=== PATIENT | female | born 1985 | race Caucasian/White ===

== ENCOUNTER → 2016-08-23 | Outpatient (CLI) | payer OTHER ==
--- NOTE | 2016-08-23 13:57 | US ---
EXAMINATION TYPE: US OB <= 14 wk fetus DATE OF EXAM: 08/23/2016 12:37 PM COMPARISON: NONE CLINICAL HISTORY: 30-year-old female Z34.80 encounter for supervision of normal . No complai nts Date of LMP: 06/02/2016 EXAM PERFORMED: Transabdominal (TA) FINDINGS: TECHNOLOGIST NOTES: some exam limitations due to patient size EXAM MEASUREMENTS: GESTATIONAL AGE / DATING Physician Established: not established yet Dates by LMP: (11 weeks/5 days) EDC: 03/09/2017 Dates by First Scan: no previous here Dates by Current Scan for: (12 weeks/1 days +/- 1W1D) EDC: 03/06/2017 MATERNAL ANATOMY Uterus: 15.5 x 9.6 x 8.2cm Right Ovary: 4.2 x 2.7 x 3.5cm Left Ovary: 4.9 x 3.2 x 3.2cm Both ovaries appear prominent in size but are not seen in great detail. No evident adnexal abnormality or cul-de-sac free fluid. GESTATION / SURVEY CRL: 5.5cm (12 weeks/1 days) MSD: Within normal limits Yolk Sac (normal less than 6mm): not seen Heart Rate: 178 bpm Rhythm: Normal IUP: single IMPRESSION: 1. Single live intrauterine with estimated gestational age of 11 weeks 5 days by LMP. Curre nt ultrasound biometry is concordant (12 weeks 1 day). 2. heart rate at the upper limits of normal. A short interval follow-up in 2 - 3 weeks can be c onsidered as indicated. 3. Ovaries appear prominent in size but are not seen in great detail.
== END | disposition home or self-care (01) ==
LOC: RADUSWWP 12:11
PROVIDERS: ATTEND Obstetrics & Gynecology
DX: Z34.80 Encounter for supervision of other normal pregnancy, unspecified trimester (principal); Z3A.11 11 weeks gestation of pregnancy
CPT/HCPCS: 76801

== ENCOUNTER → 2016-11-11 | Outpatient (CLI) | payer OTHER ==
--- NOTE | 2016-10-27 16:02 | US ---
EXAMINATION TYPE: US OB anatomy transabd DATE OF EXAM: 10/27/2016 3:39 PM COMPARISON: US HISTORY: Z36 Unspecified screening Anatomy scan, 3, para 2 TECHNIQUE: Transabdominal (TA) EXAM MEASUREMENTS: GESTATIONAL AGE / DATING Physician Established: (21 weeks/0 days) EDC: 03/09/2017 Dates by LMP: (21 weeks/0 days) EDC: 03/09/2017 Dates by First Scan: (21 weeks/3 days) EDC: 03/06/2017 Dates by Current Scan for: (22 weeks/0 days) EDC: 03/02/2017 SURVEY IUP: Single PLACENTA: Anterior PREVIA: No previa MYESHA: 14.5 cm Normal CERVICAL LENGTH (transabdominal: norm > 3.0cm): 3.3 cm BIOMETRY PRESENTATION: Breech LIE: Transverse lie with head maternal right BPD: 5.2 cm 21 weeks / 6 days HC: 19.8 cm 22 weeks / 0 days AC: 16.9 cm 22 weeks / 0 days FL: 3.7 cm 21 weeks / 6 days ESTIMATED WEIGHT IN GRAMS: 456 grams ESTIMATED WEIGHT IN LBS/OZS: 1 lbs. 0 oz. WEIGHT PERCENTAGE BASED ON ESTABLISHED DATE: 87 % HC/AC: 1.17 Normal FL/AC: 22% Normal HEART RATE: 160 bpm RHYTHM: Normal ANATOMY SEEN (within normal limits): * Lateral Vent (< 1 cm) 0.7 cm * Cisterna Magna (< 1.1 cm) 0.5 cm * Nuchal Fold (< 0.6 cm) 0.3 cm * Cerebellum (varies with age) 2.1 cm Choroid Plexus (bilateral) Midline Falx Cavus Septi Pellucidi Outflow tracts: LVOT Stomach Situs Diaphragm Kidneys (bilateral) Bladder Cord Insert Three Vessel Cord Longitudinal Spine Transverse Spine Arms (bilateral) Legs (bilateral) ANATOMY NOT SEEN: Due to position and maternal body habitus Four Chamber Heart Outflow tracts: RVOT Nose / Lips MATERNAL WALL MEASUREMENT: 4.5 cm from skin to anterior uterine wall (if exam limited due to body martinez bitus). Viable single IUP measuring 22 weeks 0 days with a heart rate of 160bpm and an estimated delivery charlee e of 03/02/2017, technically difficult and suboptimal study due to maternal body habitus Patient returning for OB callback on 11/11/16 at 3:40pm for anatomy not seen on today's exam. IMPRESSION: Single intrauterine gestation estimated at 22 weeks 0 days gestation. Cardiac activity measures 160 b pm. 2. Calculated EDC based on current measurements is 03/02/2017. 3. small parts are not completely evaluated, the patient will be recalled for additional evalua tion.
--- NOTE | 2016-11-11 15:58 | US ---
EXAMINATION TYPE: US OB Call Back DATE OF EXAM: 11/11/2016 3:43 PM COMPARISON: NONE CLINICAL HISTORY: Assess 4ch heart, outflow tracts and nose lips GESTATIONAL AGE / DATING Dates by Initial Survey Scan: (23 weeks/1 days) EDC: 03/09/2017 HEART RATE: 154 bpm RHYTHM: Normal ANATOMY SEEN (second anatomic survey look): Four Chamber Heart: Outflow tracts:? LVOT/RVOT Nose / Lips: MATERNAL WALL MEASUREMENT: 4.5 cm from skin to anterior uterine wall (if exam limited due to body martinez bitus). first 6 images done in [facility] rm 2 and could not penetrate to image clearly, moved patient to [facility] rm 1 to obtain needed images of heart and nose/lips IMPRESSION: Satisfactory supplement to anatomy scan.
== END | disposition home or self-care (01) ==
LOC: RADUSWWP 10-27 14:50
PROVIDERS: ATTEND Obstetrics & Gynecology
DX: Z36 Encounter for antenatal screening of mother (principal); Z3A.22 22 weeks gestation of pregnancy
CPT/HCPCS: 76811

== ENCOUNTER → 2017-02-21 | Outpatient (CLI) | payer OTHER ==
--- NOTE | 2017-02-22 07:48 | US ---
EXAMINATION TYPE: US OB >= 14 wk fetus DATE OF EXAM: 02/21/2017 COMPARISON: US CLINICAL HISTORY: Z36 Encounter for Screening of Mother LGA TECHNIQUE: Transabdominal (TA) GESTATIONAL AGE / DATING Physician Established: (37 weeks/5 days) EDC: 03/09/2017 Dates by LMP: (37 weeks/5 days) EDC: 03/09/2017 Dates by First Scan: (38 weeks/1 days) EDC: 03/06/2017 Dates by Current Scan: (39 weeks/2 days) EDC: 02/26/2017 SURVEY IUP: Single PLACENTA: Anterior PREVIA: No Previa MYESHA: 11.4 cm Normal CERVICAL LENGTH (transabdominal: norm > 3.0cm): 3.3 cm BIOMETRY PRESENTATION: Vertex BPD: 9.4 cm 38 weeks / 2 days HC: 35.2 cm 41 weeks / 1 days AC: 34.2 cm 38 weeks / 1 days FL: 7.7 cm 39 weeks / 3 days ESTIMATED WEIGHT IN GRAMS: 3584 grams ESTIMATED WEIGHT IN LBS/OZS: 7 lbs. 14 oz. WEIGHT PERCENTAGE BASED ON ESTABLISHED DATES: 84% HC/AC: 1.03 Normal FL/AC: 23% Normal HEART RATE: 130 bpm RHYTHM: Normal Viable single IUP measuring 39 weeks 2 days with a heart rate of 130bpm and an estimated delivery charlee e of 02/26/2017. IMPRESSION: Single viable intrauterine as discussed above.
== END | disposition home or self-care (01) ==
LOC: RADUSWWP 15:40
PROVIDERS: ATTEND Obstetrics & Gynecology
DX: Z36 Encounter for antenatal screening of mother (principal); Z3A.39 39 weeks gestation of pregnancy
CPT/HCPCS: 76805

== ENCOUNTER → 2020-10-15 | Outpatient (CLI) | payer OTHER ==
--- NOTE | 2020-10-16 13:06 | US ---
DATE OF EXAM: 10/15/2020 COMPARISON: NONE CLINICAL HISTORY: R59.9 Enlarged lymph nodes, M54.2 Cervicalgia. pain in right neck for 1.5yrs, no pa lpable. Soft tissue scan of right neck produced lymph nodes that are wnl, largest node = 1.4 x 1.0 x 0.4cm IMPRESSION: 1. Lymph node right neck
== END | disposition home or self-care (01) ==
LOC: RADUSWWP 16:45
PROVIDERS: ATTEND Psychiatry & Neurology Neurology
DX: R59.0 Localized enlarged lymph nodes (principal)
CPT/HCPCS: 76536

== ENCOUNTER 2022-05-13 08:07 | Emergency (ER) | payer OTHER ==
[2022-05-13 08:15] VITALS: RESP 18
[2022-05-13] MEDS ORDERED: SODIUM CHLORIDE 0.9% 500 ML 500 ML IV STA (08:18)
--- NOTE | 2022-05-13 08:40 | ED ---
Arrhythmia/Palpitations HPI - General Chief Complaint: Arrhythmia/Palpitations Stated Complaint: Hypotensive Time Seen by Provider: 05/13/22 08:10 Source: patient Mode of arrival: EMS Limitations: no limitations - History of Present Illness Initial Comments: 36-year-old female with past medical history of SVT, cardiomyopathy who presents to the emergency department with palpitations. States that she awoke this morning around 3:30. Around 5:30 she began having symptoms of lightheadedness and palpitations. Called EMS who found that the patient was in SVT. Blood pressure was markedly low, 60/30. EMS did attempt vagal maneuvers however were unsuccessful. IV was established and the patient was given 6 mg of adenosine and was converted. Reports he one previous episode of SVT which required adenosine. She also developed cardiomyopathy with her youngest child who is now 5 years old. She follows yearly with cardiology. Previously was with Dr. Vaughan out of [place] - now sees Dr. Perez. Reports to having an echo approximately 8 months ago. Her ejection fraction has been improving however has not completely reached baseline. She denies any recent medication changes. Did take her Coreg this morning. Denies any recent illnesses. No fevers or chills. She did have associated chest pain and shortness of breath with the episode which is now resolved. No abdominal pain. No black or bloody stools. Denies concern for . No other alleviating, precipitating or modifying factors - Related Data Home Medications Medication Instructions Recorded Confirmed Cetirizine HCl [Zyrtec] 10 mg PO DAILY 05/13/22 05/13/22 Gabapentin 600 mg PO QID 05/13/22 05/13/22 HYDROcodone/APAP 10-325MG [[place] 1 tab PO QID PRN 05/13/22 05/13/22 10-325] Losartan/Hydrochlorothiazide 1 tab PO DAILY 05/13/22 05/13/22 [Hyzaar 100-25 Tablet] Medroxyprogesterone Acetate 150 mg IM Q84D 05/13/22 05/13/22 [Depo-Provera] Rosuvastatin Calcium 5 mg PO DAILY 05/13/22 05/13/22 buPROPion XL [Wellbutrin XL] 300 mg PO DAILY 05/13/22 05/13/22 carvediloL [Coreg] 25 mg PO BID 05/13/22 05/13/22 methocarbamoL [Robaxin-750] 750 mg PO QID 05/13/22 05/13/22 Allergies Allergy/AdvReac Type Severity Reaction Status Date / Time codeine AdvReac Nausea & Verified 05/13/22 10:22 Vomiting & Rash-from Tylenol #3 varenicline [From Chantix] AdvReac Nightmares Verified 05/13/22 10:22 Review of Systems ROS Statement: Those systems with pertinent positive or pertinent negative responses have been documented in the HPI. ROS Other: All systems not noted in ROS Statement are negative. Past Medical History Past Medical History: No Reported History Additional Past Medical History / Comment(s): Cardiomyopathy, SVT, History of Any Multi-Drug Resistant Organisms: None Reported Past Surgical History: Adenoidectomy, Appendectomy, Cholecystectomy, Tonsillectomy Past Psychological History: No Psychological Hx Reported Past Alcohol Use History: None Reported Past Drug Use History: None Reported General Exam Limitations: no limitations General appearance: alert, in no apparent distress Head exam: Present: atraumatic, normocephalic, normal inspection Eye exam: Present: normal appearance, PERRL, EOMI. Absent: scleral icterus, conjunctival injection, periorbital swelling ENT exam: Present: normal exam, mucous membranes moist Neck exam: Present: normal inspection. Absent: tenderness, meningismus, lymphadenopathy Respiratory exam: Present: normal lung sounds bilaterally. Absent: respiratory distress, wheezes, rales, rhonchi, stridor Cardiovascular Exam: Present: normal rhythm, tachycardia, normal heart sounds. Absent: systolic murmur, diastolic murmur, rubs, gallop, clicks GI/Abdominal exam: Present: soft, normal bowel sounds. Absent: distended, tenderness, guarding, rebound, rigid Extremities exam: Present: normal inspection, full ROM, normal capillary refill. Absent: tenderness, pedal edema, joint swelling, calf tenderness Back exam: Present: normal inspection Neurological exam: Present: alert, oriented X3, CN II-XII intact Psychiatric exam: Present: normal affect, normal mood Skin exam: Present: warm, dry, intact, normal color. Absent: rash Course Vital Signs 05/13/22 05/13/22 05/13/22 08:08 08:15 08:58 Temperature 99.0 F Pulse Rate 105 H 114 H Pulse Rate [ 106 H Residential Assistant ] Respiratory 18 18 Rate Blood Pressure 144/90 120/89 O2 Sat by Pulse 99 98 Oximetry 05/13/22 05/13/22 10:15 11:17 Temperature 98.8 F Pulse Rate 95 92 Pulse Rate [ Residential Assistant ] Respiratory 18 18 Rate Blood Pressure 108/69 117/80 O2 Sat by Pulse 99 97 Oximetry EKG Findings - EKG Comments: EKG Findings:: EKG demonstrates a sinus rhythm with a rate of 99. AK interval 137. QRS 11. QTC of 394. No acute ST segment elevations or depressions. I interpreted the EKG myself Medical Decision Making - Medical Decision Making Upon arrival patient is placed in room 2. Thorough history and physical exam is performed. patient placed on continuous pulse ox and cardiac monitoring. Patient has sinus tachycardia at this time. IV had been established laboratory studies were conducted. Chest x-rays performed. Patient does take chronic pain medication therefore is given a dose of pain medications. Laboratory studies are reviewed and within normal limits. Chest x-ray demonstrates no acute cardio primary process. Patient has not had any SVT while within the emergency department. I did discuss diagnosis, differential and treatment process. Patient is stable for discharge home at this time. Instructed to call [facility] for follow-up appointment to discuss further treatment plan. I attempted to call Dr. Baptiste however he is in a procedure therefore unavailable for consultation at this time. Patient understood. Instructed to return for any new or worsening symptoms. Discharged home in stable condition - Lab Data Result diagrams: 05/13/22 08:31 05/13/22 08:31 Lab Results 05/13/22 05/13/22 05/13/22 Range/Units 08:31 08:31 08:31 WBC 12.1 H (3.8-10.6) k/uL RBC 4.74 (3.80-5.40) m/uL Hgb 14.6 (11.4-16.0) gm/dL Hct 43.4 (34.0-46.0) % MCV 91.4 (80.0-100.0) fL MCH 30.7 (25.0-35.0) pg MCHC 33.6 (31.0-37.0) g/dL RDW 13.1 (11.5-15.5) % Plt Count 250 (150-450) k/uL MPV 8.6 Neutrophils % 70 % Lymphocytes % 22 % Monocytes % 3 % Eosinophils % 2 % Basophils % 1 % Neutrophils # 8.5 H (1.3-7.7) k/uL Lymphocytes # 2.7 (1.0-4.8) k/uL Monocytes # 0.4 (0-1.0) k/uL Eosinophils # 0.2 (0-0.7) k/uL Basophils # 0.1 (0-0.2) k/uL PT 10.7 (9.0-12.0) sec INR 1.0 (<1.2) APTT 25.0 (22.0-30.0) sec Sodium 142 (137-145) mmol/L Potassium 3.9 (3.5-5.1) mmol/L Chloride 112 H (98-107) mmol/L Carbon Dioxide 25 (22-30) mmol/L Anion Gap 5 mmol/L BUN 9 (7-17) mg/dL Creatinine 0.60 (0.52-1.04) mg/dL Est GFR (CKD-EPI)AfAm >90 (>60 ml/min/1.73 sqM) Est GFR (CKD-EPI)NonAf >90 (>60 ml/min/1.73 sqM) Glucose 104 H (74-99) mg/dL Calcium 9.3 (8.4-10.2) mg/dL Magnesium 2.0 (1.6-2.3) mg/dL Total Bilirubin 0.7 (0.2-1.3) mg/dL AST 14 (14-36) U/L ALT 12 (4-34) U/L Alkaline Phosphatase 65 (38-126) U/L Troponin I (0.000-0.034) ng/mL Total Protein 6.7 (6.3-8.2) g/dL Albumin 4.2 (3.5-5.0) g/dL TSH 0.769 (0.465-4.680) mIU/L Urine Color Urine Appearance (Clear) Urine pH (5.0-8.0) Ur Specific [place] (1.001-1.035) Urine Protein (Negative) Urine Glucose (UA) (Negative) Urine Ketones (Negative) Urine Blood (Negative) Urine Nitrite (Negative) Urine Bilirubin (Negative) Urine Urobilinogen (<2.0) mg/dL Ur Leukocyte Esterase (Negative) Urine HCG, Qual (Not Detectd) 05/13/22 05/13/22 05/13/22 Range/Units 08:31 08:58 08:58 WBC (3.8-10.6) k/uL RBC (3.80-5.40) m/uL Hgb (11.4-16.0) gm/dL Hct (34.0-46.0) % MCV (80.0-100.0) fL MCH (25.0-35.0) pg MCHC (31.0-37.0) g/dL RDW (11.5-15.5) % Plt Count (150-450) k/uL MPV Neutrophils % % Lymphocytes % % Monocytes % % Eosinophils % % Basophils % % Neutrophils # (1.3-7.7) k/uL Lymphocytes # (1.0-4.8) k/uL Monocytes # (0-1.0) k/uL Eosinophils # (0-0.7) k/uL Basophils # (0-0.2) k/uL PT (9.0-12.0) sec INR (<1.2) APTT (22.0-30.0) sec Sodium (137-145) mmol/L Potassium (3.5-5.1) mmol/L Chloride (98-107) mmol/L Carbon Dioxide (22-30) mmol/L Anion Gap mmol/L BUN (7-17) mg/dL Creatinine (0.52-1.04) mg/dL Est GFR (CKD-EPI)AfAm (>60 ml/min/1.73 sqM) Est GFR (CKD-EPI)NonAf (>60 ml/min/1.73 sqM) Glucose (74-99) mg/dL Calcium (8.4-10.2) mg/dL Magnesium (1.6-2.3) mg/dL Total Bilirubin (0.2-1.3) mg/dL AST (14-36) U/L ALT (4-34) U/L Alkaline Phosphatase (38-126) U/L Troponin I 0.024 (0.000-0.034) ng/mL Total Protein (6.3-8.2) g/dL Albumin (3.5-5.0) g/dL TSH (0.465-4.680) mIU/L Urine Color Colorless Urine Appearance Clear (Clear) Urine pH 6.0 (5.0-8.0) Ur Specific [place] 1.005 (1.001-1.035) Urine Protein Negative (Negative) Urine Glucose (UA) Negative (Negative) Urine Ketones Negative (Negative) Urine Blood Negative (Negative) Urine Nitrite Negative (Negative) Urine Bilirubin Negative (Negative) Urine Urobilinogen <2.0 (<2.0) mg/dL Ur Leukocyte Esterase Negative (Negative) Urine HCG, Qual Not Detected (Not Detectd) Disposition Clinical Impression: SVT (supraventricular tachycardia), Palpitations Disposition: HOME SELF-CARE Condition: Stable Instructions (If sedation given, give patient instructions): Heart Palpitations (ED) Additional Instructions: Call the cardiology office to make an appointment. Talk with them about an EP study and medication changes. Continue taking your medications as directed for now. Return to the emergency room should you have any new or worsening symptoms Is patient prescribed a controlled substance at d/c from ED?: No Referrals: Rachid Sorto MD [Primary Care Provider] - 1-2 days [facility] [Provider Group] - 1-2 days Time of Disposition: 10:38
[2022-05-13 08:42] LABS: Basophils # (A) 0.1 k/uL (0-0.2); Basophils % (A) 1 %; Eosinophils # (A) 0.2 k/uL (0-0.7); Eosinophils % (A) 2 %; HCT 43.4 % (34.0-46.0); HGB 14.6 gm/dL (11.4-16.0); Lymphocytes # (A) 2.7 k/uL (1.0-4.8); Lymphocytes % (A) 22 %; MCH 30.7 pg (25.0-35.0); MCHC 33.6 g/dL (31.0-37.0); MCV 91.4 fL (80.0-100.0); Mean Platelet Volume 8.6; Monocytes # (A) 0.4 k/uL (0-1.0); Monocytes % (A) 3 %; Neutrophils # (A) 8.5 k/uL (1.3-7.7); Neutrophils % (A) 70 %; Platelet Count 250 k/uL (150-450); RBC 4.74 m/uL (3.80-5.40); RDW 13.1 % (11.5-15.5); WBC 12.1 k/uL (3.8-10.6)
[2022-05-13 08:56] LABS: Prothrombin Time 10.7 sec (9.0-12.0)
--- NOTE | 2022-05-13 09:06 | XR ---
EXAMINATION TYPE: XR chest 2V DATE OF EXAM: 05/13/2022 8:47 AM COMPARISON: Chest radiographs from 07/28/2014. TECHNIQUE: XR chest 2V Frontal and lateral views of the chest. CLINICAL INDICATION:Female, 36 years old with history of dysrhythmia; FINDINGS: Lungs/Pleura: There is no evidence of pleural effusion, focal consolidation, or pneumothorax. Pulmonary vascularity: Unremarkable. Heart/mediastinum: Cardiomediastinal silhouette is unremarkable. Musculoskeletal: No acute osseous pathology. IMPRESSION: No acute cardiopulmonary disease/process. No significant change from prior examination.
[2022-05-13 09:09] LABS: ALT 12 U/L (4-34); AST 14 U/L (14-36); African American GFR (CKD) >90 (>60 ml/min/1.73 sqM); Albumin 4.2 g/dL (3.5-5.0); Alkaline Phosphatase 65 U/L (38-126); Anion Gap 5 mmol/L; Blood Urea Nitrogen 9 mg/dL (7-17); Calcium 9.3 mg/dL (8.4-10.2); Carbon Dioxide 25 mmol/L (22-30); Chloride 112 mmol/L (98-107); Glucose 104 mg/dL (74-99); Non-African American GFR(CKD) >90 (>60 ml/min/1.73 sqM); Potassium 3.9 mmol/L (3.5-5.1); Sodium 142 mmol/L (137-145); Total Bilirubin 0.7 mg/dL (0.2-1.3); Total Protein 6.7 g/dL (6.3-8.2)
[2022-05-13 09:17] LABS: Appearance,Urine Clear (Clear); Bilirubin,Urine Negative (Negative); Blood,Urine Negative (Negative); Color,Urine Colorless; Glucose,Urine (UA) Negative (Negative); Ketones,Urine Negative (Negative); Leukocyte Esterase,Urine Negative (Negative); Nitrite,Urine Negative (Negative); Protein,Urine Negative (Negative); Specific Gravity,Urine 1.005 (1.001-1.035); Urobilinogen,Urine <2.0 mg/dL (<2.0)
[2022-05-13] MEDS ORDERED: HYDROmorphone 1 MG/ML 1 ML SYRINGE IVP STA (10:36)
[2022-05-13 11:19] VITALS: BP 117/80; PULSE 92; TEMP 98.8
== END 2022-05-13 11:20 | disposition home or self-care (01) ==
LOC: EC 08:07
DX: R00.2 Palpitations (principal); I47.1 Supraventricular tachycardia; Z88.5 Allergy status to narcotic agent; Z88.9 Allergy status to unspecified drugs, medicaments and biological substances
CPT/HCPCS: 36415; 93005; 80053; 84443; 83735; 84484; 85025; 85610; 85730; 81003; 81025; 71046; 99285; 96374; J1170